=== PATIENT | male | born 1970 | race Caucasian/White ===

== ENCOUNTER 2019-11-07 03:55 | Inpatient (IN) | payer BC ==
[~2019-11-07] VITALS: Ht 177.8 cm; Wt 115.7 kg
--- NOTE | 2019-11-07 04:11 | NUR ---
MT: ENT (Dr. Cook) paged at [phone]
[2019-11-07] MEDS: SODIUM CHLORIDE 0.9% 1,000 ML IV SCH ×3 (04:51→19:48)
[2019-11-07] MEDS ORDERED: morphine SULFATE 10 MG/ML, 1ML IVPush PRN (05:00)
[2019-11-07] MEDS ORDERED: ONDANSETRON 2MG/ML, 2ML IVPush PRN (05:00)
[2019-11-07] MEDS ORDERED: hydrALAzine 20 MG/ML, 1ML IVPush PRN (05:00)
[2019-11-07] MEDS ORDERED: PLEASE ENTER ALLERGIES MC SCH (05:30)
--- NOTE | 2019-11-07 05:47 | NUR ---
SPOKE TO DR NEWMAN WHOM CONFIRMS PT NEEDS ICU ADMISSION
--- NOTE | 2019-11-07 06:33 | NUR ---
Pt called for an update on pt's status. stated that recently started using a cpap machine, and was struggling with the settings. Pt stated that their neighbor recently came down with "VZV" and wanted to make sure that he did not catch the virus from him. states that neighbors symptoms were very similar.
--- NOTE | 2019-11-07 06:40 | NUR ---
Pts (Dalila Sandhu) would like to be contacted with any changes in pt condition or updates [phone].
--- NOTE | 2019-11-07 06:56 | NUR ---
RECEIVED REPORT FROM [facility]UROR[facility] WHITE
[2019-11-07] MEDS ORDERED: DEXAMETHASONE 4 MG/ML, 1ML ONE (07:16)
[2019-11-07] MEDS ORDERED: MORPHINE SULFATE 4 MG/ML, 1ML ONE (07:23)
--- NOTE | 2019-11-07 07:35 | NUR ---
PT STATES LAST TIME HE ATE WAS YESTERDAY, A HALF BURRITO, AND DRANK SIP OF WATER AT 11 PM. USING YAUNKER TO SUCTION SALIVA AND MEDCIATED FOR THROAT PAIN AND REPORT GIVEN TO ICU NURSE. PT TO BE TRANSFERRED TO FLOOR.
[2019-11-07] MEDS: DEXAMETHASONE 4 MG/ML, 1ML IVPush SCH ×3 (07:56→19:48)
[2019-11-07] MEDS ORDERED: ACYC-113 PO (09:27)
[2019-11-07] MEDS ORDERED: ALLO300T PO (09:28)
[2019-11-07] MEDS: AMPICILLIN/SULBACTAM 3 GM in SODIUM CHLORIDE 0.9% 100 ML IV SCH ×3 (09:29→20:58)
[2019-11-07] MEDS ORDERED: LEVO100T5 PO (09:29)
[2019-11-07 10:15] VITALS: BP 95/67
[2019-11-07] MEDS ORDERED: CHLORHEXIDINE 15 ML UDC MM PRN (15:30)
[2019-11-08] MEDS: DEXAMETHASONE 4 MG/ML, 1ML IVPush SCH (02:25)
[2019-11-08] MEDS: AMPICILLIN/SULBACTAM 3 GM in SODIUM CHLORIDE 0.9% 100 ML IV SCH ×4 (02:25→20:40)
[2019-11-08 04:52] LABS: MEAN CORPUSCULAR HEMOGLOBIN 32.3 pg (27.5-34.5); MEAN CORPUSCULAR HGB CONC 33.3 g/dL (33.2-36.2); MEAN PLATELET VOLUME 7.7 fL (7.4-10.4); PLATELET COUNT 160 x10^3/uL (130-400); RED BLOOD COUNT 5.33 x10^6/uL (4.38-5.82); RED CELL DISTRIBUTION WIDTH 13.8 % (9.4-14.8)
[2019-11-08 05:05] LABS: ANION GAP 8 mmol/L (5-15); CALCIUM 8.6 mg/dL (8.5-10.1); CHLORIDE 109 mmol/L (98-107); CREATININE 1.23 mg/dL (0.7-1.3)
[2019-11-08 05:29] LABS: FREE T4 (FREE THYROXINE) 1.08 ng/dL (0.76-1.46)
[2019-11-08 05:58] LABS: BASOPHILS # (AUTO) 0.04 x10^3/uL (0-0.1); BASOPHILS % (AUTO) 0 % (0-1); EOSINOPHILS % (AUTO) 0 % (1-7); LYMPHOCYTES # (AUTO) 1.14 x10^3/uL (1-3.4); LYMPHOCYTES % (AUTO) 6 % (22-44); MD SCAN; MONOCYTES # (AUTO) 0.59 x10^3/uL (0.2-0.8); MONOCYTES % (AUTO) 3 % (2-9); NEUTROPHILS # (AUTO) 16.22 x10^3/uL (1.8-6.8); NEUTROPHILS % (AUTO) 90 % (42-75)
[2019-11-08] MEDS: SODIUM CHLORIDE 0.9% 1,000 ML IV SCH (06:02)
[2019-11-08 08:00] VITALS: BP 114/85
[2019-11-08] MEDS ORDERED: OXYcodone IR 5MG TABLET PO PRN (08:00)
[2019-11-08] MEDS: LEVOTHYROXINE 100 MCG TABLET PO SCH (08:38)
[2019-11-08 13:46] VITALS: BP 109/82
[2019-11-08 20:00] VITALS: BP 124/82
[2019-11-09 00:46] VITALS: BP 115/69
[2019-11-09] MEDS: AMPICILLIN/SULBACTAM 3 GM in SODIUM CHLORIDE 0.9% 100 ML IV SCH ×4 (03:07→21:37)
[2019-11-09] MEDS: LEVOTHYROXINE 100 MCG TABLET PO SCH (06:00)
[2019-11-09 06:15] LABS: BASOPHILS # (AUTO) 0.04 x10^3/uL (0-0.1); BASOPHILS % (AUTO) 0 % (0-1); EOSINOPHILS # (AUTO) 0.05 x10^3/uL (0-0.4); EOSINOPHILS % (AUTO) 0 % (1-7); LYMPHOCYTES # (AUTO) 2.13 x10^3/uL (1-3.4); LYMPHOCYTES % (AUTO) 15 % (22-44); MD NO; MEAN CORPUSCULAR HEMOGLOBIN 33.1 pg (27.5-34.5); MEAN CORPUSCULAR HGB CONC 33.9 g/dL (33.2-36.2); MEAN CORPUSCULAR VOLUME 97.7 fL (81-97); MONOCYTES # (AUTO) 0.91 x10^3/uL (0.2-0.8); MONOCYTES % (AUTO) 7 % (2-9); NEUTROPHILS # (AUTO) 10.92 x10^3/uL (1.8-6.8); NEUTROPHILS % (AUTO) 78 % (42-75); PLATELET COUNT 167 x10^3/uL (130-400); RED BLOOD COUNT 4.83 x10^6/uL (4.38-5.82); RED CELL DISTRIBUTION WIDTH 13.3 % (9.4-14.8)
[2019-11-09 07:51] VITALS: BP 141/95
[2019-11-09] MEDS ORDERED: OXYcodone IR 5MG TABLET PO PRN (08:30)
[2019-11-09 13:12] VITALS: BP 124/76
[2019-11-09 19:59] VITALS: BP 132/76
[2019-11-10] MEDS: AMPICILLIN/SULBACTAM 3 GM in SODIUM CHLORIDE 0.9% 100 ML IV SCH ×2 (03:05→09:51)
[2019-11-10 03:06] VITALS: BP 132/92
[2019-11-10] MEDS: LEVOTHYROXINE 100 MCG TABLET PO SCH (05:42)
[2019-11-10 06:58] VITALS: BP 134/94
[2019-11-10 07:16] LABS: BASOPHILS # (AUTO) 0.04 x10^3/uL (0-0.1); BASOPHILS % (AUTO) 1 % (0-1); EOSINOPHILS # (AUTO) 0.22 x10^3/uL (0-0.4); EOSINOPHILS % (AUTO) 2 % (1-7); HEMOGRAM NOTE RECHECKED; LYMPHOCYTES # (AUTO) 2.22 x10^3/uL (1-3.4); LYMPHOCYTES % (AUTO) 25 % (22-44); MD NO; MEAN CORPUSCULAR HEMOGLOBIN 32.9 pg (27.5-34.5); MEAN CORPUSCULAR HGB CONC 33.7 g/dL (33.2-36.2); MEAN CORPUSCULAR VOLUME 97.5 fL (81-97); MEAN PLATELET VOLUME 7.2 fL (7.4-10.4); MONOCYTES # (AUTO) 0.74 x10^3/uL (0.2-0.8); MONOCYTES % (AUTO) 8 % (2-9); NEUTROPHILS # (AUTO) 5.73 x10^3/uL (1.8-6.8); NEUTROPHILS % (AUTO) 64 % (42-75); PLATELET COUNT 190 x10^3/uL (130-400); RED BLOOD COUNT 5.09 x10^6/uL (4.38-5.82); RED CELL DISTRIBUTION WIDTH 13.5 % (9.4-14.8)
[2019-11-10] MEDS ORDERED: AMOX1TAB64 PO (09:20)
[2019-11-10] MEDS ORDERED: LEVO125T5 PO (09:20)
== END 2019-11-10 11:54 | disposition home or self-care (01) | DRG 153 ==
LOC: ED 04:34 → EDIP 05:24 → CCU 08:09 → 3N 11-08 13:41 → DCLOUNGE 11-10 11:43
PROVIDERS: ADMIT Internal Medicine; ATTEND Hospitalist
DX: J36 Peritonsillar abscess (principal); J05.10 Acute epiglottitis without obstruction; J39.1 Other abscess of pharynx; E03.9 Hypothyroidism, unspecified; L40.9 Psoriasis, unspecified; E66.9 Obesity, unspecified; K76.0 Fatty (change of) liver, not elsewhere classified; G47.33 Obstructive sleep apnea (adult) (pediatric); F12.90 Cannabis use, unspecified, uncomplicated; Z98.890 Other specified postprocedural states; Z68.36 Body mass index [BMI] 36.0-36.9, adult; Z87.891 Personal history of nicotine dependence; Z72.89 Other problems related to lifestyle
CPT/HCPCS: 36415; 80048; 84439; 84443; 85025; 87081; 93005; 96374; 99285; G0378; J0295; J1100; J2270; J7030